=== PATIENT | female | born 1960 | race Caucasian/White ===

== ENCOUNTER 2017-03-17 06:06 | Emergency (ER) | payer BC, OTHER ==
[2017-03-17] MEDS ORDERED: oxyCODONE/Acetamin 5/325 MG* TAB PO ONE (06:31)
[2017-03-17] MEDS ORDERED: Ibuprofen TAB* 800 MG PO ONE (06:31)
[2017-03-17 06:58] LABS: ABS Basophils 0 10^3/ul (0-0.2); ABS Eosinophils 0.1 10^3/ul (0-0.6); ABS Lymphocytes 1.1 10^3/ul (1.0-4.8); ABS Monocytes 0.5 10^3/ul (0-0.8); ABS Neutrophils 5.6 10^3/ul (1.5-7.7); ABS Nucleated RBC 0 10^3/ul; Eosinophil % 1.8 % (0-6); Hematocrit 43 % (35-47); Hemoglobin 14.8 g/dl (12.0-16.0); Lymphocyte % 14.8 % (25-47); Mean Corpuscular HGB Conc 34 g/dl (31-36); Mean Corpuscular Hemoglobin 33 pg (27-31); Mean Corpuscular Volume 97 fL (80-97); Mean Platelet Volume 8 um3 (7.4-10.4); Nucleated Red Blood Cells % 0; Platelet Count 229 10^3/ul (150-450); Red Blood Count 4.47 10^6/ul (4.0-5.4); Red Cell Distribution Width 13 % (10.5-15); White Blood Count 7.3 10^3/ul (3.5-10.8)
--- NOTE | 2017-03-17 07:03 | ED ---
Daylin Monroe Edward, scribed for Antonio Rosario MD on 03/17/17 at 0628 . Lower Extremity - HPI Summary HPI Summary: 57 y/o female JOSE ELIAS c/o sudden onset R knee swelling and pain starting 11:00 yesterday morning, worsening since. Pt iced her knee all night. Pt states she travelled in a car for over [address] to and from [place] last week and yesterday. Pt took ASA and Tylenol, oxycodone 20:00 yesterday. Denies trauma to her leg. - History of Current Complaint Chief Complaint: EDExtremityLower Stated Complaint: LEG PAIN Hx Obtained From: Patient Onset/Duration: Days Severity Currently: Severe Pain Intensity: 9 Pain Scale Used: 0-10 Numeric Timing: Constant Location: Is Discrete @ - R knee Associated Signs And Symptoms: Positive: Swelling, Knee Pain - Allergies/Home Medications Allergies/Adverse Reactions: Allergies Allergy/AdvReac Type Severity Reaction Status Date / Time No Known Allergies Allergy Verified 03/17/17 06:16 PMH/Surg Hx/FS Hx/Imm Hx Previously Healthy: No Endocrine/Hematology History: Denies: Hx Diabetes Cardiovascular History: Denies: Hx Myocardial Infarction - Immunization History Date of Tetanus Vaccine: utd Date of Influenza Vaccine: none Infectious Disease History: No Infectious Disease History: Denies: Traveled Outside the [place] in Last 30 Days - Family History Known Family History: Positive: None - Social History Lives: With Family Alcohol Use: Daily Alcohol Amount: couple glasses of wine Hx Substance Use: No Substance Use Type: Reports: None Smoking Status (MU): Never Smoked Tobacco Review of Systems Constitutional: Negative Eyes: Negative ENT: Negative Cardiovascular: Negative Respiratory: Negative Gastrointestinal: Negative Genitourinary: Negative Positive: Arthralgia - R knee pain, Edema - R knee Skin: Negative Neurological: Negative Psychological: Normal All Other Systems Reviewed And Are Negative: Yes Physical Exam - Summary Physical Exam Summary: VITAL SIGNS: Reviewed. GENERAL: Patient is a well-developed and nourished female who is lying comfortable in the stretcher. Patient is not in any acute respiratory distress. HEAD AND FACE: No signs of trauma. No ecchymosis, hematomas or skull depressions. No sinus tenderness. EYES: PERRLA, EOMI x 2, No injected conjunctiva, no nystagmus. EARS: Hearing grossly intact. Ear canals and tympanic membranes are within normal limits. MOUTH: Oropharynx within normal limits. NECK: Supple, trachea is midline, no adenopathy, no JVD, no carotid bruit, no c- spine tenderness, neck with full ROM. CHEST: Symmetric, no tenderness at palpation LUNGS: Clear to auscultation bilaterally. No wheezing or crackles. CVS: Regular rate and rhythm, S1 and S2 present, no murmurs or gallops appreciated. ABDOMEN: Soft, non-tender. No signs of distention. No rebound no guarding, and no masses palpated. Bowel sounds are normal. EXTREMITIES: Swelling in her RLE - cord-like structure. Tenderness over the medial side of the distal R thigh. NEURO: Alert and oriented x 3. No acute neurological deficits. Speech is normal and follows commands. SKIN: Dry and warm Triage Information Reviewed: Yes Vital Signs On Initial Exam: Initial Vitals Temp Pulse Resp BP Pulse Ox 97.9 F 65 18 168/76 99 03/17/17 06:14 03/17/17 06:14 03/17/17 06:14 03/17/17 06:14 03/17/17 06:14 Vital Signs Reviewed: Yes Diagnostics - Vital Signs Vital Signs Temp Pulse Resp BP Pulse Ox 03/17/17 06:14 97.9 F 65 18 168/76 99 - Laboratory Lab Statement: Any lab studies that have been ordered have been reviewed, and results considered in the medical decision making process. Lower Extremity Course/Dx - Course Assessment/Plan: 57 y/o female BIBA c/o sudden onset R knee swelling and pain starting 11:00 yesterday morning, worsening since. Pt will be signed out to the morning attending pending US and bloodwork to r/o DVT, and dispo. - Diagnoses Provider Diagnoses: Left leg pain Discharge - Discharge Plan Condition: Stable Disposition: OTHER Discharge Disposition Comment: sign out to morning attending pending US results and dispo Referrals: Farheen French MD [Primary Care Provider] - The documentation as recorded by the Daylin guy Edward accurately reflects the service I personally performed and the decisions made by , Antonio Rosario MD.
[2017-03-17 07:12] LABS: EGFR Non-African American 85.9 (>60)
[2017-03-17 08:10] LABS: INR 0.87 (0.77-1.02)
[2017-03-17 08:35] VITALS: BP 128/62
--- NOTE | 2017-03-17 08:35 | RAD ---
INDICATION: RIGHT knee area fluid collection proximal aspect of the patella. Medial knee region pain. COMPARISON: No relevant prior exams available on the [facility] PACS for comparison. TECHNIQUE: Monroy scale, color Doppler, and spectral analysis of the deep veins of the RIGHT lower extremity. Vessel compression, phasicity, and augmentation assessed. REPORT: The RIGHT common femoral, great saphenous, profunda femoral, femoral, popliteal, peroneal, and posterior tibial veins are patent. A small amount of fluid is visualized at the suprapatellar joint recess of the knee. Patency of the LEFT common femoral vein documented. IMPRESSION: 1. No evidence for RIGHT lower extremity deep venous thrombosis. 2. Small RIGHT knee effusion.
--- NOTE | 2017-03-17 09:12 | ED ---
Eleno Monroe Angela, scribed for Sameer Rodriguez MD on 03/17/17 at 0728 . Progress - Progress Note Progress Note: This pt was signed out by Dr. Rosario, pending disposition, awaiting RLE US. Pt is a 57 y/o female presenting to [facility] c/o right knee pain and swelling. Pt states she has traveled a lot this past weekend in a car. Physical Exam: VITAL SIGNS: Reviewed. GENERAL: Patient is a well-developed and nourished female who is lying comfortable in the stretcher. Patient is not in any acute respiratory distress. HEAD AND FACE: No signs of trauma. No ecchymosis, hematomas or skull depressions. No sinus tenderness. EYES: PERRLA, EOMI x 2, No injected conjunctiva, no nystagmus. EARS: Hearing grossly intact. Ear canals and tympanic membranes are within normal limits. MOUTH: Oropharynx within normal limits. NECK: Supple, trachea is midline, no adenopathy, no JVD, no carotid bruit, no c- spine tenderness, neck with full ROM. CHEST: Symmetric, no tenderness at palpation LUNGS: Clear to auscultation bilaterally. No wheezing or crackles. CVS: Regular rate and rhythm, S1 and S2 present, no murmurs or gallops appreciated. ABDOMEN: Soft, non-tender. No signs of distention. No rebound no guarding, and no masses palpated. Bowel sounds are normal. EXTREMITIES: FROM in all major joints, no edema, no cyanosis or clubbing. Slight tenderness in the medial aspect of the right knee. NEURO: Alert and oriented x 3. No acute neurological deficits. Speech is normal and follows commands. SKIN: Dry and warm US Right lower extremity, as read by radiologist: IMPRESSION: 1. No evidence for RIGHT lower extremity deep venous thrombosis. 2. Small RIGHT knee effusion. Dr. Rodriguez has reviewed this radiology report. Pt will be discharged to home, in stable condition, with a diagnosis with knee pain. I discussed all the findings and test results with the patient. Patient was instructed to return to the emergency room immediately if any of the symptoms return or worsens. Plan of care was discussed with the patient and understands and agrees. All questions were answered at patient satisfaction. There were no further complaints or concerns. Lung exam before discharge: CTA B/L. Good air exchange. No wheezing or crackles heard. CVS: S1 and S2 present. No murmurs appreciated. Patient is alert and oriented x 3. Patient is hemodynamically stable. Patient will be discharged home with follow up PCP in the next 2-3 days Condition: Stable Disposition: Home Re-Evaluation - Re-Evaluation First Eval Re-Evaluation Time: 07:26 Comment: Pt reports she feels a little better after pain medication. Course/Dx - Course Course Of Treatment: This pt was signed out by Dr. Rosario he requested to follow up on the ultrasounds report. Ultrasound of the right lower extremity is negative for DVT, she has a small effusion in the right knee. Test results without any significant abnormalities. Pt will be discharged to home with follow up from PCP. - Diagnoses Provider Diagnoses: Knee pain The documentation as recorded by the Eleno guy Angela accurately reflects the service I personally performed and the decisions made by me, Sameer Rodriguez MD.
== END 2017-03-17 09:03 | disposition home or self-care (01) ==
LOC: ED 06:06
DX: M25.561 Pain in right knee (principal); M25.461 Effusion, right knee
CPT/HCPCS: 36415; 80053; 84450; 85025; 85610; 85730; 99282; A9270-GY